=== PATIENT | male | born 1990 | race Caucasian/White ===

== ENCOUNTER 2023-05-02 17:28 | Emergency (ER) | payer SELFPAY ==
[~2023-05-02] VITALS: Ht 172.7 cm; Wt 77.1 kg
[2023-05-02 17:32] VITALS: BP 124/72
--- NOTE | 2023-05-02 17:56 | NUR ---
PATIENT BIB [facility] POLICE DEPT. PATIENT EXAMINED BY DR. FARR. PATIENT MEDICALLY CLEARED AND RELEASED IN CUSTODY IN STABLE CONDITION. ORIGINAL PRE-BOOK FORM GIVEN TO OFFICER
== END 2023-05-02 17:56 ==
LOC: MED 17:28
DX: Z02.89 Encounter for other administrative examinations (principal); V89.2XXA Person injured in unspecified motor-vehicle accident, traffic, initial encounter; Y93.89 Activity, other specified; Y92.410 Unspecified street and highway as the place of occurrence of the external cause; Y99.8 Other external cause status
CPT/HCPCS: 99283